=== PATIENT | female | born 1935 | race Two or more races ===

== ENCOUNTER 2018-09-24 08:55 | Outpatient (CLI) | payer OTHER | END 2018-09-24 09:00 | disposition home or self-care (01) | LOC: RX STUDY 08:55 | DX: R10.84 Generalized abdominal pain (principal) ==

== ENCOUNTER 2018-12-18 09:28 | Outpatient (CLI) | payer OTHER | END 2018-12-18 09:30 | disposition home or self-care (01) | LOC: SONOGRAMA 09:28 | DX: R10.9 Unspecified abdominal pain (principal) ==

== ENCOUNTER 2019-09-13 09:33 | Outpatient (CLI) | payer OTHER | END 2019-09-13 09:37 | disposition home or self-care (01) | LOC: RAD 09:33 | DX: M17.0 Bilateral primary osteoarthritis of knee (principal); M16.9 Osteoarthritis of hip, unspecified ==